=== PATIENT | female | born 1990 | race African-American/Black ===

== ENCOUNTER 2017-01-01 20:01 | Emergency (ER) | payer SELFPAY ==
[~2017-01-01] VITALS: Ht 152.4 cm; Wt 57.7 kg
[~2017-01-01 20:01] MED LIST: URIN1STR71 PO
[2017-01-01 20:07] VITALS: BP 161/92
== END 2017-01-01 20:14 | disposition left against medical advice (07) ==
LOC: ED 20:13
DX: R10.9 Unspecified abdominal pain (principal); Z53.21 Procedure and treatment not carried out due to patient leaving prior to being seen by health care provider

== ENCOUNTER 2017-02-11 10:17 | Emergency (ER) | payer OTHER ==
[~2017-02-11] VITALS: Ht 152.4 cm; Wt 54.8 kg
[2017-02-11] MEDS ORDERED: HYDR12.53 PO (11:07)
[2017-02-11] MEDS ORDERED: ONDANSETRON 2MG/ML, 2ML IVPush ONE (12:30)
[2017-02-11] MEDS ORDERED: MORPHINE SULFATE 4 MG/ML, 1ML IVPush PRN (12:30)
[2017-02-11] MEDS ORDERED: ASPIRIN 81 MG TABLET CHEW PO ONE (12:30)
[2017-02-11] MEDS ORDERED: SODIUM CHLORIDE FLUSH 10ML SYR IVF ONE (12:30)
[2017-02-11] MEDS ORDERED: MORPHINE SULFATE 4 MG/ML, 1ML ONE (12:47)
[2017-02-11] MEDS ORDERED: ASPIRIN 81 MG TABLET CHEW ONE (12:47)
[2017-02-11] MEDS ORDERED: ONDANSETRON 2MG/ML, 2ML ONE (12:47)
[2017-02-11 12:57] LABS: ASPARTATE AMINO TRANSFERASE 45 U/L (15-37); BLOOD UREA NITROGEN 16 mg/dL (7-18)
[2017-02-11 13:02] LABS: IS PT STATUS REG ER OR PRE ER? YES
[2017-02-11 13:25] VITALS: BP 132/82
== END 2017-02-11 14:28 | disposition home or self-care (01) ==
LOC: ED 10:59
DX: R07.89 Other chest pain (principal); R06.02 Shortness of breath; I10 Essential (primary) hypertension
CPT/HCPCS: 36415; 71010; 80053; 84484; 85025; 85379; 93005

== ENCOUNTER 2017-05-01 11:33 | Emergency (ER) | payer OTHER ==
[~2017-05-01] VITALS: Ht 152.4 cm; Wt 55.0 kg
[~2017-05-01 11:33] MED LIST changes: +HYDR12.53 PO
[2017-05-01 11:42] VITALS: BP 140/88
[2017-05-01] MEDS ORDERED: DEXAMETHASONE 4 MG/ML, 1ML PO ONE (12:30)
[2017-05-01] MEDS ORDERED: DEXAMETHASONE 4 MG TABLET ONE (12:33)
== END 2017-05-01 12:40 | disposition home or self-care (01) ==
LOC: ED 12:25
DX: J45.31 Mild persistent asthma with (acute) exacerbation (principal); Z76.0 Encounter for issue of repeat prescription; I10 Essential (primary) hypertension
CPT/HCPCS: 93005; 99283; J1100

== ENCOUNTER 2017-06-19 13:09 | Emergency (ER) | payer SELFPAY ==
[~2017-06-19] VITALS: Ht 152.4 cm; Wt 57.2 kg
[2017-06-19 13:10] VITALS: BP 159/66
[2017-06-19] MEDS ORDERED: IBUPROFEN 200 MG TABLET ONE (13:51)
[2017-06-19] MEDS: IBUPROFEN 200 MG TABLET PO ONE (13:54)
== END 2017-06-19 14:48 | disposition home or self-care (01) ==
LOC: ED 13:42
DX: M65.842 Other synovitis and tenosynovitis, left hand (principal); J45.909 Unspecified asthma, uncomplicated; I10 Essential (primary) hypertension
CPT/HCPCS: 29125